=== PATIENT | male | born 1995 | race Caucasian/White ===

== ENCOUNTER 2017-08-14 10:10 | Emergency (ER) | payer BC ==
[~2017-08-14] VITALS: Ht 182.9 cm; Wt 78.5 kg
[2017-08-14 10:36] VITALS: BP 140/82
[2017-08-14] MEDS ORDERED: IV NORMAL SALINE 1,000ML 1,000 ML IV SCH (10:37)
--- NOTE | 2017-08-14 11:01 | RAD ---
Exam performed: CT scan of the head and cervical spine without contrast. Date of Service: 08/14/17 Comparison:None available Clinical History: Head trauma 2 weeks ago, neck pain and altered metal status morning Technique: Helical acquisitions are obtained from the foramen magnum to the vertex without intravenous administration of contrast. In addition helical acquisitions are obtained through the cervical spine. Sagittal and coronal reformatted images are obtained and reviewed. CT scan head findings: The ventricular system is midline without evidence of dilatation. Normal sawant-white differentiation is maintained. There is no extra axial fluid collection, intraparenchymal hemorrhage or mass lesion. The visualized orbits, paranasal sinuses and the mastoid air cells are clear. The calvarium is intact. Impression: 1. Normal non-contrast CT of the brain. End impression CT cervical spine findings: Normal sagittal alignment is preserved. The vertebral body heights and intravertebral disc spaces are maintained. There is no calixto or retrolisthesis. There are no fractures. No prevertebral soft tissue swelling is identified. No definite lymphadenopathy or masses are seen within the neck. The visualized thyroid and salivary glands appears preserved. Impression: No acute abnormality seen in the CT scan cervical spine. PQRS Compliance Statement: One or more of the following individualized dose reduction techniques were utilized for this examination: 1. Automated exposure control 2. Adjustment of the mA and/or kV according to patient size 3. Use of iterative reconstruction technique
--- NOTE | 2017-08-14 11:07 | PHYS DOC ---
General Chief Complaint: HEADACHE Stated Complaint: HEADACHE Time Seen by MD: 10:37 Source: patient Exam Limitations: no limitations Problems: History of Present Illness Initial Comments Patient is a 20-year-old male brought to the ED by EMS with headache and neck pain. Patient states that he was at a jousting tournament a week ago at the [facility] and that he was hit in the face which was helmeted with a facemask by the jousting causing him to fall off the horse landing on his buttocks. Since that time he's had a global throbbing headache described as mild as well as photophobia. He's been sleeping more and has had decreased by mouth intake. He denies any focal neurologic deficits he's also had some neck stiffness he describes as muscular. This morning he was driving to school and felt lightheaded and he called EMS for evaluation. EMS reports his blood glucose was 105, patient was brought to the ED very anxious and somewhat lethargic. ED vital signs are stable patient has history of autoimmune hepatitis and rheumatoid arthritis. Timing/Duration: 1 week Severity: moderate Modifying Factors: worse with movement, improves with rest Associated Symptoms: headaches, loss of appetite, malaise, other Allergies: Coded Allergies: Penicillins (Verified Allergy, Unknown, 08/14/17) amoxicillin (Verified Allergy, Unknown, 08/14/17) Past Medical History Medical History: other (rheumatoid arthritis, autoimmune hepatitis) Surgical History: noncontributory Social History Smoker: non-smoker Alcohol: none Drugs: none Review of Systems Constitutional: denies chills, denies diaphoresis, denies fever, malaise EENTM: see HPI, denies eye pain (positive photophobia), denies ear discharge, denies nose congestion Respiratory: denies cough, denies shortness of breath Cardiovascular: denies chest pain, denies palpitations, denies syncope Gastrointestinal: denies nausea, denies vomiting Musculoskeletal: denies back pain, joint pain, joint swelling, muscle pain, muscle stiffness, neck pain Psychiatric/Neurological: see HPI Physical Exam General Appearance: WD/WN, no apparent distress Eyes: bilateral eye normal inspection, bilateral eye PERRL, bilateral eye EOMI Ear, Nose, Throat: hearing grossly normal, normal ENT inspection (mucous membranes very dry he appears to be hypovolemic on physical exam), other (head is normocephalic atraumatic no ear or nose discharge no fluid behind TMs bilaterally no facial swelling) Neck: supple, other (right-sided sternocleidomastoid and trapezius hypertonicity with tenderness there is no midline tenderness no meningeal signs) Respiratory: normal breath sounds, no respiratory distress Cardiovascular: normal peripheral pulses, regular rate, rhythm Gastrointestinal: non tender, soft Back: no CVA tenderness, no vertebral tenderness Extremities: normal range of motion, non-tender, normal inspection, pelvis stable Neurologic/Psychiatric: porcelain finisher II-XII nml as tested, no motor/sensory deficits, alert, oriented x 3, other (patient appears to be nervous he is slow to answer) Orders, Labs, Meds PATIENT: EILEEN YO ACCOUNT: [id number] : 1995 LOCATION: ER AGE: 21 SEX: M EXAM STATUS: REG ER ORD. PHYSICIAN: JACK KNOTT DO REASON: head trauma, now AMS PROCEDURE: CT HEAD AND CERVICAL SPINE WO Exam performed: CT scan of the head and cervical spine without contrast. Date of Service: 08/14/17 Comparison:None available Clinical History: Head trauma 2 weeks ago, neck pain and altered metal status morning Technique: Helical acquisitions are obtained from the foramen magnum to the vertex without intravenous administration of contrast. In addition helical acquisitions are obtained through the cervical spine. Sagittal and coronal reformatted images are obtained and reviewed. CT scan head findings: The ventricular system is midline without evidence of dilatation. Normal sawant-white differentiation is maintained. There is no extra axial fluid collection, intraparenchymal hemorrhage or mass lesion. The visualized orbits, paranasal sinuses and the mastoid air cells are clear. The calvarium is intact. Impression: 1. Normal non-contrast CT of the brain. End impression CT cervical spine findings: Normal sagittal alignment is preserved. The vertebral body heights and intravertebral disc spaces are maintained. There is no calixto or retrolisthesis. There are no fractures. No prevertebral soft tissue swelling is identified. No definite lymphadenopathy or masses are seen within the neck. The visualized thyroid and salivary glands appears preserved. Impression: No acute abnormality seen in the CT scan cervical spine. PQRS Compliance Statement: One or more of the following individualized dose reduction techniques were utilized for this examination: 1. Automated exposure control 2. Adjustment of the mA and/or kV according to patient size 3. Use of iterative reconstruction technique DICTATED AND SIGNED BY: OK KAPLAN MD DATE: 08/14/17 0515 CC: PCP,NO; JACK KNOTT DO ~ Patient was a 1 L normal saline IV bolus after which she states she's feeling much better. Labs and urine studies were unremarkable. I discussed concussion precautions and postconcussive syndrome, I discussed signs and symptoms to monitor and indications for return. Patient states he does not live alone and has others who will be able to check on him and monitor that he is drinking enough as he is from [place]. He expressed agreement and understanding with the treatment plan Departure Time of Disposition: 12:05 Disposition: 01 HOME, SELF-CARE Diagnosis: Post-concussive syndrome, hypovolemia Condition: GOOD Patient Instructions: Post-Concussion Syndrome, Oveq-qt-Fhes Additional Instructions: Work/school excuse thru 07/18. Rest, no strenuous activity until next week. Aggressive hydration with gatorade, water. OTC tylenol for discomfort. Follow up with a doctor next week for recheck and before resuming any exercise or strenuous activity. Return to ED with new or changing symptoms. JACK KNOTT DO Aug 14, 2017 11:07
[2017-08-14 11:20] LABS: BARBITURATES NEG (NEG); BENZODIAZEPINES NEG (NEG); CANNABINOIDS NEG (NEG); COCAINE NEG (NEG); METHADONE NEG (NEG); OPIATES NEG (NEG); PHENCYCLIDINE NEG (NEG)
[2017-08-14 11:21] LABS: AMPHETAMINE/METHAMPHETAMINE NEG (NEG)
[2017-08-14 11:25] LABS: BILIRUBIN,URINE NEG (NEG); CLARITY,URINE HAZY; COLOR,URINE YELLOW; GLUCOSE,URINE NEG (NEG); NITRITE,URINE NEG (NEG); UROBILINOGEN,URINE 1 mg/dL (0.2 mg/dL)
[2017-08-14 11:26] LABS: CALCIUM 9.1 mg/dL (8.5-10.1); GFR 94.3; POTASSIUM 3.6 mmol/L (3.5-5.1)
[2017-08-14 11:26] LABS: AMORPHOUS SEDIMENT,UR PRESENT /HPF; BACTERIA,URINE FEW /HPF (0-FEW); SQUAMOUS EPITHELIAL CELL,UR FEW /LPF; WBC,URINE OCC /HPF (0-4)
== END 2017-08-14 12:51 | disposition home or self-care (01) ==
LOC: ER 10:10
DX: F07.81 Postconcussional syndrome (principal); E86.1 Hypovolemia; M06.9 Rheumatoid arthritis, unspecified; Z88.0 Allergy status to penicillin; Z88.1 Allergy status to other antibiotic agents; V80.010A Animal-rider injured by fall from or being thrown from horse in noncollision accident, initial encounter; Y93.52 Activity, horseback riding; Y99.8 Other external cause status; Y92.89 Other specified places as the place of occurrence of the external cause
CPT/HCPCS: 36415; 70450; 72125; 80048; 80307; 81001; 96360; 99285-25; G0479; J7030